=== PATIENT | male | born 1955 | race Caucasian/White ===

== ENCOUNTER 2022-06-22 12:41 | Inpatient (IN) | payer OTHER ==
[~2022-06-22] VITALS: Ht 177.8 cm; Wt 120.9 kg
[~2022-06-22 12:41] MED LIST: CLINDAMYCIN 900 MG/D5% WATER 50 ML IV ONE
[2022-06-22] MEDS ORDERED: RINGERS SOLUTION,LACTATED 1,000 ML IV ONE ×4 (12:51→16:15)
[2022-06-22 13:14] LABS: COVID AG,FIA SOURCE NASAL SWAB
[2022-06-22] MEDS ORDERED: ETHYL ALCOHOL 62% ANTISEPTIC NASAL SANITIZER 0.6 ML AMPUL NASAL ONE (13:15)
[2022-06-22] MEDS ORDERED: BUPIVACAINE LIPOSOME/PF 1.3%-13.3MG/ML SUSPENSION 20 ML VIAL INJ ONE (13:15)
[2022-06-22 13:27] LABS: GLUCOMETER DEV NAME(LOC) SDS.; GLUCOSE,POINT OF CARE 93 MG/DL (70-110)
[2022-06-22] MEDS ORDERED: FAMO20 PO (13:30)
[2022-06-22] MEDS ORDERED: QUET200T PO (13:30)
[2022-06-22] MEDS ORDERED: OXYC-490 PO (13:32)
[2022-06-22] MEDS ORDERED: SODIUM CHLORIDE 0.9% 20 ML ONE (13:33)
[2022-06-22] MEDS ORDERED: PREG50 PO (13:33)
[2022-06-22] MEDS ORDERED: VANCOMYCIN HCL 1 GM/VIAL ONE (13:33)
[2022-06-22] MEDS ORDERED: ESOM20CA31 PO (13:34)
[2022-06-22] MEDS ORDERED: METF-1211 PO (13:43)
[2022-06-22] MEDS ORDERED: DULO-113 PO (13:44)
[2022-06-22] MEDS ORDERED: VERA120T91 PO (13:45)
[2022-06-22] MEDS ORDERED: ATOR40TA28 PO (13:46)
[2022-06-22] MEDS ORDERED: HYDR-4527 PO (13:46)
[2022-06-22] MEDS ORDERED: BUPIVACAINE HCL/PF 0.5% 30 ML VIAL ONE (13:47)
[2022-06-22] MEDS ORDERED: TAMS-13 PO (13:47)
[2022-06-22] MEDS ORDERED: QUET100T PO (13:57)
[2022-06-22] MEDS ORDERED: INSU100V36 SQ (14:00)
[2022-06-22] MEDS ORDERED: INSU100I26 SQ (14:00)
[2022-06-22] MEDS ORDERED: PROPOFOL 1000 MG/ISO-OSM 100 ML ONE (15:03)
[2022-06-22] MEDS ORDERED: OxyCODONE HCL/ACETAMINOPHEN 5-325 MG TABLET PO PRN ×2 (15:45)
[2022-06-22] MEDS ORDERED: ZOLPIDEM TARTRATE 10 MG TABLET PO PRN (15:45)
[2022-06-22] MEDS ORDERED: MAG HYDROX/AL HYDROX/SIMETH 30 ML SUSP UDCUP PO PRN (15:45)
[2022-06-22] MEDS ORDERED: BENZOCAINE/MENTHOL LOZENGE PO PRN (15:45)
[2022-06-22] MEDS ORDERED: ONDANSETRON HCL 4 MG/2 ML VIAL IVP PRN ×2 (15:45→20:30)
[2022-06-22] MEDS ORDERED: HYDROmorphone HCL 2 MG/ML SYRINGE IVP PRN ×4 (15:45→20:45)
[2022-06-22] MEDS ORDERED: DiphenhydrAMINE HCL 50 MG/ML VIAL IVP PRN (15:45)
[2022-06-22] MEDS: DEXAMETHASONE SOD PHOS 4 MG/ML VIAL IVP SCH ×2 (16:00→23:32)
[2022-06-22] MEDS ORDERED: ACETAMINOPHEN 1000 MG/ISO-OSM 100 ML IV ONE (16:01)
[2022-06-22] MEDS ORDERED: PHENYLEPHRINE 200 MG/D5%-WATER 250 ML IV PRN (16:15)
[2022-06-22] MEDS ORDERED: NOREPINEPHRINE 8 MG/D5%-WATER 250 ML IV PRN (16:45)
[2022-06-22] MEDS ORDERED: FentaNYL CITRATE PF 100 MCG/2 ML VIAL IVP PRN (17:45)
[2022-06-22 18:10] VITALS: BP 122/77
[2022-06-22] MEDS: OXYGEN THERAPY IH SCH (20:00)
[2022-06-22 20:10] VITALS: BP 141/87
[2022-06-22] MEDS ORDERED: BISACODYL 10 MG RECTAL RECTAL SUPPOSITORY PR PRN (20:30)
[2022-06-22] MEDS ORDERED: MORPHINE SULFATE 2 MG/ML SYRINGE IVP PRN (20:30)
[2022-06-22] MEDS ORDERED: HYDROCODONE/ACETAMINOPHEN 5-325 MG TABLET PO PRN (20:30)
[2022-06-22] MEDS ORDERED: MAGNESIUM HYDROXIDE SUSPENSION 30 ML UDCUP PO PRN (20:30)
[2022-06-22] MEDS ORDERED: ZOLPIDEM TARTRATE 5 MG TABLET PO PRN (20:30)
[2022-06-22] MEDS ORDERED: ACETAMINOPHEN 325 MG TABLET PO PRN (20:30)
[2022-06-22] MEDS: DOCUSATE SODIUM 100 MG CAPSULE PO SCH (21:00)
[2022-06-22] MEDS: VERAPAMIL HCL 120 MG TABLET PO SCH (21:00)
[2022-06-22] MEDS ORDERED: INSULIN LISPRO 100 UNITS/ML SQ SCH (21:00)
[2022-06-22] MEDS: HydrOXYzine HCL 25 MG TABLET PO SCH (21:00)
[2022-06-22] MEDS: TAMSULOSIN HCL 0.4 MG CAPSULE PO SCH (21:00)
[2022-06-22] MEDS ORDERED: DOCUSATE SODIUM 100 MG CAPSULE PO SCH (21:00)
[2022-06-22] MEDS: PREGABALIN 50 MG CAPSULE PO SCH (21:00)
[2022-06-22] MEDS ORDERED: QUEtiapine FUMARATE 200 MG TABLET PO SCH (23:00)
[2022-06-22] MEDS: OxyCODONE HCL/ACETAMINOPHEN 5-325 MG TABLET PO PRN (23:31)
[2022-06-23] MEDS ORDERED: HYDROmorphone HCL 2 MG/ML SYRINGE IVP ONE (01:15)
[2022-06-23 03:07] LABS: GLUCOMETER DEV NAME(LOC) 6N.1; GLUCOSE,POINT OF CARE 139 MG/DL (70-110)
[2022-06-23] MEDS: DIAZEPAM 5 MG TABLET PO PRN ×2 (03:19→09:48)
[2022-06-23 04:02] VITALS: BP 173/125
[2022-06-23] MEDS ORDERED: LIDOCAINE 2% 5 ML JELLY TP ONE (04:22)
[2022-06-23] MEDS ORDERED: KETAMINE HCL 50 MG/ML 10 ML VIAL IVP ONE (04:22)
[2022-06-23] MEDS ORDERED: PHENYLEPHRINE HCL 10 MG/ML VIAL IVP ONE (04:22)
[2022-06-23] MEDS ORDERED: MIDAZOLAM HCL 2 MG/2 ML VIAL IVP ONE (04:22)
[2022-06-23] MEDS ORDERED: ROCURONIUM BROMIDE 10 MG/ML 5 ML VIAL IVP ONE (04:22)
[2022-06-23] MEDS ORDERED: 0.9% SODIUM CHLORIDE 10 ML VIAL IVP ONE (04:22)
[2022-06-23] MEDS ORDERED: ONDANSETRON HCL 4 MG/2 ML VIAL IVP ONE (04:22)
[2022-06-23] MEDS ORDERED: SUCCINYLCHOLINE CHLORIDE 20 MG/ML 10 ML VIAL IVP ONE (04:22)
[2022-06-23] MEDS ORDERED: GLYCOPYRROLATE 0.2 MG/ML VIAL IM ONE (04:22)
[2022-06-23] MEDS ORDERED: EPHEDrine SULFATE 50 MG/ML VIAL IM ONE (04:22)
[2022-06-23] MEDS ORDERED: FentaNYL CITRATE PF 100 MCG/2 ML VIAL IVP ONE (04:22)
[2022-06-23] MEDS: VERAPAMIL HCL 120 MG TABLET PO SCH ×2 (04:26→15:15)
[2022-06-23] MEDS: OxyCODONE HCL/ACETAMINOPHEN 5-325 MG TABLET PO PRN ×2 (04:59→12:08)
[2022-06-23] MEDS: NICOTINE 21 MG/24 HOUR PATCH TD SCH ×2 (05:00→08:05)
[2022-06-23 05:16] LABS: GLUCOMETER DEV NAME(LOC) 6N.1; GLUCOSE,POINT OF CARE 143 MG/DL (70-110)
[2022-06-23 06:27] VITALS: BP 169/101
[2022-06-23 06:28] VITALS: BP 185/108
[2022-06-23] MEDS ORDERED: QUEtiapine FUMARATE 100 MG TABLET PO SCH (06:30)
[2022-06-23] MEDS: HydrALAZINE HCL 25 MG TABLET PO SCH ×3 (06:43→15:21)
[2022-06-23 07:27] LABS: EOSINOPHILS % (AUTO) 1.5 % (1.0-6.0); HEMATOCRIT 43.5 % (41-53); HEMOGLOBIN 14.8 g/dL (13.5-17.5); LYMPHOCYTES # (AUTO) 2.4 K/uL (1.0-4.8); LYMPHOCYTES % (AUTO) 23.7 % (22.0-44.0); MEAN CORPUSCULAR HGB CONC 33.9 G/dL (31.0-37.0); MEAN CORPUSCULAR VOLUME 86 fL (80-100); NEUTROPHILS # (AUTO) 6.5 K/uL (1.8-7.7); NEUTROPHILS % (AUTO) 63.8 % (40.0-70.0); PLATELET COUNT (AUTO) 258 K/uL (150-450); RED BLOOD CELL COUNT(AUTO) 5.08 MIL/uL (4.50-5.90); RED CELL DISTRIBUTION WIDTH 13.2 % (11.5-14.5)
[2022-06-23 07:36] LABS: ANION GAP 12 mmol/L (8-16); CALCIUM, TOTAL 8.5 mg/dL (8.8-10.5); CARBON DIOXIDE 25 mmol/L (22-29); CHLORIDE 100 mmol/L (98-107); CREATININE 0.97 mg/dL (0.60-1.30); GLUCOSE,RANDOM 205 mg/dL (70-110); POTASSIUM 3.8 mmol/L (3.5-5.1); SODIUM SERUM 137 mmol/L (136-145); UREA NITROGEN, BLOOD 12 mg/dL (7-18)
[2022-06-23 07:37] LABS: GLOMERULAR FILTR. RATE CALC > 60 mL/min (>60)
[2022-06-23] MEDS: HYDROmorphone HCL 2 MG/ML SYRINGE IVP PRN ×2 (07:48→14:09)
[2022-06-23] MEDS: OXYGEN THERAPY IH SCH (07:59)
[2022-06-23] MEDS: DEXAMETHASONE SOD PHOS 4 MG/ML VIAL IVP SCH (08:00)
[2022-06-23] MEDS ORDERED: MetFORMIN HCL 500 MG TABLET PO SCH (08:00)
[2022-06-23] MEDS: PREGABALIN 50 MG CAPSULE PO SCH (08:11)
[2022-06-23] MEDS: TAMSULOSIN HCL 0.4 MG CAPSULE PO SCH (08:12)
[2022-06-23] MEDS: HydrOXYzine HCL 25 MG TABLET PO SCH (08:13)
[2022-06-23] MEDS: DOCUSATE SODIUM 100 MG CAPSULE PO SCH (08:15)
[2022-06-23] MEDS ORDERED: DULoxetine HCL 60 MG CAPSULE PO SCH (09:00)
[2022-06-23] MEDS ORDERED: PANTOPRAZOLE SODIUM 40 MG DR TABLET PO SCH (09:00)
[2022-06-23] MEDS ORDERED: INSULIN GLARGINE,HUM.REC.ANLOG 100 UNITS/ML SQ SCH (09:00)
[2022-06-23] MEDS ORDERED: ATORVASTATIN CALCIUM 40 MG TABLET PO SCH (09:00)
[2022-06-23] MEDS ORDERED: ESOMEPRAZOLE MAG TRIHYDRATE 20 MG CAPSULE PO SCH (09:00)
[2022-06-23 09:01] VITALS: BP 150/80
[2022-06-23] MEDS ORDERED: INSULIN LISPRO 100 UNITS/ML SQ PRN ×2 (11:45→12:00)
[2022-06-23] MEDS ORDERED: GLUCAGON,HUMAN RECOMBINANT 1 MG VIAL IM PRN (11:45)
[2022-06-23] MEDS ORDERED: DEXTROSE 50%-WATER 25 GM/50 ML SYRINGE IVP PRN (12:00)
[2022-06-23] MEDS ORDERED: INSULIN LISPRO 100 UNITS/ML SQ SCH (12:00)
[2022-06-23 15:26] VITALS: BP 128/80
[2022-06-23 20:17] LABS: GLUCOMETER DEV NAME(LOC) 6N.1; GLUCOSE,POINT OF CARE 294 MG/DL (70-110)
[2022-06-23] MEDS ORDERED: QUEtiapine FUMARATE 200 MG TABLET PO SCH (21:00)
== END 2022-06-23 15:25 | disposition home or self-care (01) | DRG 304 ==
LOC: SURGERY 12:41 → 6S 12:42 → UNDOADMIN 18:21
PROVIDERS: ADMIT Neurological Surgery; ATTEND Neurological Surgery
PROC: 0SB40ZZ Excision of Lumbosacral Disc, Open Approach (ICD-10-PCS; 2022-06-22)
PROC: 4A11X4G Monitoring of Peripheral Nervous Electrical Activity, Intraoperative, External Approach (ICD-10-PCS; 2022-06-22)
PROC: 0SG30A0 Fusion of Lumbosacral Joint with Interbody Fusion Device, Anterior Approach, Anterior Column, Open Approach (ICD-10-PCS; principal; 2022-06-22 15:15)
DX: M51.27 Other intervertebral disc displacement, lumbosacral region (principal); E11.9 Type 2 diabetes mellitus without complications; E78.5 Hyperlipidemia, unspecified; K21.9 Gastro-esophageal reflux disease without esophagitis; I10 Essential (primary) hypertension; E66.01 Morbid (severe) obesity due to excess calories; N40.0 Benign prostatic hyperplasia without lower urinary tract symptoms; Z20.822 Contact with and (suspected) exposure to COVID-19; Z79.84 Long term (current) use of oral hypoglycemic drugs; Z79.899 Other long term (current) drug therapy; Z88.0 Allergy status to penicillin; Z68.38 Body mass index [BMI] 38.0-38.9, adult; Z79.4 Long term (current) use of insulin
CPT/HCPCS: 71045; 72100; 80048; 82962; 85025; 87081; 97162; 97165; 97535; C9290; G0238; J0131; J0330; J1100; J1170; J1200; J1815; J2250; J2370; J2405; J2704; J3010; J3370; J3490; J7120; 36415-L1; 36415-TC; C1716; C9803; Z7610

== ENCOUNTER 2022-06-26 09:00 | Emergency (ER) | payer OTHER ==
[~2022-06-26] VITALS: Ht 180.3 cm; Wt 109.1 kg
[~2022-06-26 09:00] MED LIST changes: -CLINDAMYCIN 900 MG/D5% WATER 50 ML IV ONE; +DULO-113 PO; +ESOM20CA31 PO; +FAMO20 PO; +HYDR-4527 PO; +INSU100I26 SQ; +INSU100V36 SQ; +METF-1211 PO; +OXYC-490 PO; +PREG50 PO; +QUET100T PO; +QUET200T PO; +TAMS-13 PO; +VERA120T91 PO
[2022-06-26 10:09] VITALS: BP 129/75
== END 2022-06-26 10:10 | disposition home or self-care (01) ==
LOC: EMS 09:02
DX: Z48.00 Encounter for change or removal of nonsurgical wound dressing (principal); Z88.0 Allergy status to penicillin; Z91.030 Bee allergy status
CPT/HCPCS: 99281; Z7502

== ENCOUNTER 2022-07-27 08:31 | Emergency (ER) | payer OTHER ==
[~2022-07-27] VITALS: Ht 177.8 cm; Wt 97.7 kg
[~2022-07-27 08:31] MED LIST changes: +ATOR-2 PO; +BISA10SU11 PR; +NICO-703 TP; +PARO30TA60 PO; +PERCT PO; +UMEC62.5 IH; +VERA120T21 PO; -VERA120T91 PO
[2022-07-27] MEDS ORDERED: OXYC-30 PO (08:37)
[2022-07-27] MEDS ORDERED: OxyCODONE HCL 5 MG IR TABLET PO ONE (10:15)
[2022-07-27 10:43] VITALS: BP 145/98
== END 2022-07-27 10:46 | disposition home or self-care (01) ==
LOC: EMS 08:34
DX: S70.01XA Contusion of right hip, initial encounter (principal); Z88.0 Allergy status to penicillin; Z88.8 Allergy status to other drugs, medicaments and biological substances; Z91.030 Bee allergy status; W18.30XA Fall on same level, unspecified, initial encounter; Y93.89 Activity, other specified; Y92.89 Other specified places as the place of occurrence of the external cause; Y99.8 Other external cause status
CPT/HCPCS: 73502; 82962; 99283

== ENCOUNTER 2022-09-02 12:20 | Emergency (ER) | payer OTHER ==
[~2022-09-02] VITALS: Ht 177.8 cm; Wt 104.5 kg
[~2022-09-02 12:20] MED LIST changes: -ATOR-2 PO; -BISA10SU11 PR; +OXYC-30 PO; -OXYC-490 PO; -PARO30TA60 PO; -PERCT PO
[2022-09-02] MEDS ORDERED: HYDROmorphone HCL 2 MG/ML SYRINGE IM ONE (13:15)
[2022-09-02] MEDS ORDERED: ONDANSETRON HCL 4 MG/2 ML VIAL IM ONE (13:15)
[2022-09-02 13:34] LABS: BASOPHILS % (AUTO) 1.3 % (0.0-2.0); EOSINOPHILS % (AUTO) 6.1 % (1.0-6.0); HEMATOCRIT 43.4 % (41-53); HEMOGLOBIN 14.5 g/dL (13.5-17.5); LYMPHOCYTES # (AUTO) 2.2 K/uL (1.0-4.8); LYMPHOCYTES % (AUTO) 22.5 % (22.0-44.0); MEAN CORPUSCULAR HEMOGLOBIN 29.2 pg (26.0-34.0); MEAN CORPUSCULAR HGB CONC 33.4 G/dL (31.0-37.0); MEAN CORPUSCULAR VOLUME 87 fL (80-100); MONOCYTES # (AUTO) 0.9 K/uL (0.1-1.0); MONOCYTES % (AUTO) 8.7 % (2.0-9.0); NEUTROPHILS # (AUTO) 6.1 K/uL (1.8-7.7); NEUTROPHILS % (AUTO) 61.4 % (40.0-70.0); PLATELET COUNT (AUTO) 311 K/uL (150-450); RED BLOOD CELL COUNT(AUTO) 4.97 MIL/uL (4.50-5.90); RED CELL DISTRIBUTION WIDTH 13.8 % (11.5-14.5)
[2022-09-02 13:44] LABS: ANION GAP 8 mmol/L (8-16); CALCIUM, TOTAL 8.7 mg/dL (8.8-10.5); CARBON DIOXIDE 28 mmol/L (22-29); CHLORIDE 103 mmol/L (98-107); CREATININE 0.76 mg/dL (0.60-1.30); GLOMERULAR FILTR. RATE CALC > 60 mL/min (>60); GLUCOSE,RANDOM 102 mg/dL (70-110); POTASSIUM 3.8 mmol/L (3.5-5.1); SODIUM SERUM 139 mmol/L (136-145); UREA NITROGEN, BLOOD 14 mg/dL (7-18)
[2022-09-02 13:50] LABS: ALANINE AMINOTRANSFERASE 18 U/L (12-78); ALBUMIN 3.3 g/dL (3.4-5.0); ALKALINE PHOSPHATASE 122 U/L (46-116); ASPARTATE AMINOTRANSFERASE 25 U/L (15-37); BILIRUBIN,TOTAL 0.3 mg/dL (0.1-1.0); LIPASE 49 U/L (73-393); TOTAL PROTEIN, SERUM 6.3 g/dL (6.4-8.2)
[2022-09-02 14:30] VITALS: BP 157/92
[2022-09-02] MEDS ORDERED: OxyCODONE HCL/ACETAMINOPHEN 5-325 MG TABLET PO ONE (15:00)
== END 2022-09-02 17:22 | disposition home or self-care (01) ==
LOC: EMS 12:20
DX: S06.0X0A Concussion without loss of consciousness, initial encounter (principal); S13.4XXA Sprain of ligaments of cervical spine, initial encounter; S30.0XXA Contusion of lower back and pelvis, initial encounter; S90.01XA Contusion of right ankle, initial encounter; Z88.0 Allergy status to penicillin; Z91.030 Bee allergy status; Z88.8 Allergy status to other drugs, medicaments and biological substances; W19.XXXA Unspecified fall, initial encounter; Y93.89 Activity, other specified; Y92.89 Other specified places as the place of occurrence of the external cause; Y99.8 Other external cause status
CPT/HCPCS: 99291; 70450; 71045; 80053; 82962; 83605; 83690; 84484; 85025; 72070; 72100; 72170; 73590; 73610; 72125; 96372; J1170; J2405

== ENCOUNTER 2022-09-07 06:20 | Emergency (ER) | payer OTHER ==
[~2022-09-07] VITALS: Ht 177.8 cm; Wt 104.5 kg
[~2022-09-07 06:20] MED LIST changes: -NICO-703 TP
[2022-09-07] MEDS ORDERED: ONDANSETRON HCL 4 MG TABLET PO ONE (07:30)
[2022-09-07] MEDS ORDERED: OxyCODONE HCL/ACETAMINOPHEN 5-325 MG TABLET PO ONE (07:30)
[2022-09-07 07:47] LABS: BASOPHILS % (AUTO) 2.1 % (0.0-2.0); EOSINOPHILS % (AUTO) 8.4 % (1.0-6.0); HEMATOCRIT 40.1 % (41-53); HEMOGLOBIN 13.7 g/dL (13.5-17.5); LYMPHOCYTES # (AUTO) 2.5 K/uL (1.0-4.8); MEAN CORPUSCULAR HEMOGLOBIN 29.5 pg (26.0-34.0); MEAN CORPUSCULAR HGB CONC 34.2 G/dL (31.0-37.0); MEAN CORPUSCULAR VOLUME 86 fL (80-100); MONOCYTES # (AUTO) 0.7 K/uL (0.1-1.0); MONOCYTES % (AUTO) 9.1 % (2.0-9.0); NEUTROPHILS # (AUTO) 3.6 K/uL (1.8-7.7); NEUTROPHILS % (AUTO) 47.4 % (40.0-70.0); PLATELET COUNT (AUTO) 296 K/uL (150-450); RED BLOOD CELL COUNT(AUTO) 4.64 MIL/uL (4.50-5.90); RED CELL DISTRIBUTION WIDTH 13.4 % (11.5-14.5)
[2022-09-07 07:58] LABS: ANION GAP 7 mmol/L (8-16); CALCIUM, TOTAL 8.6 mg/dL (8.8-10.5); CARBON DIOXIDE 26 mmol/L (22-29); CHLORIDE 104 mmol/L (98-107); CREATININE 0.69 mg/dL (0.60-1.30); GLOMERULAR FILTR. RATE CALC > 60 mL/min (>60); GLUCOSE,RANDOM 182 mg/dL (70-110); POTASSIUM 3.8 mmol/L (3.5-5.1); SODIUM SERUM 137 mmol/L (136-145); UREA NITROGEN, BLOOD 14 mg/dL (7-18)
[2022-09-07 08:04] LABS: ALANINE AMINOTRANSFERASE 18 U/L (12-78); ALBUMIN 3.3 g/dL (3.4-5.0); ALKALINE PHOSPHATASE 119 U/L (46-116); ASPARTATE AMINOTRANSFERASE 18 U/L (15-37); BILIRUBIN,TOTAL 0.3 mg/dL (0.1-1.0); LIPASE 56 U/L (73-393); TOTAL PROTEIN, SERUM 6.3 g/dL (6.4-8.2)
[2022-09-07 08:30] VITALS: BP 144/83
[2022-09-07] MEDS ORDERED: ONDA-104 PO (08:36)
== END 2022-09-07 09:00 | disposition home or self-care (01) ==
LOC: EMS 06:20
DX: R11.2 Nausea with vomiting, unspecified (principal); R19.7 Diarrhea, unspecified; E11.9 Type 2 diabetes mellitus without complications; I10 Essential (primary) hypertension; Z90.49 Acquired absence of other specified parts of digestive tract; Z98.890 Other specified postprocedural states
CPT/HCPCS: 99283; 80053; 82962; 83690; 85025; 36415; G0480; Q0162

== ENCOUNTER 2022-10-17 19:34 | Emergency (ER) | payer OTHER ==
[~2022-10-17] VITALS: Ht 177.8 cm; Wt 113.6 kg
[~2022-10-17 19:34] MED LIST changes: +ONDA-104 PO
[2022-10-17 19:43] VITALS: BP 134/82
[2022-10-17] MEDS ORDERED: SODIUM CHLORIDE 0.9% 1,000 ML IV ONE (20:15)
[2022-10-17] MEDS ORDERED: HydrOXYzine HCL 25 MG TABLET PO ONE (20:15)
[2022-10-17] MEDS ORDERED: ONDANSETRON HCL 4 MG/2 ML VIAL IVP ONE (20:15)
[2022-10-17] MEDS ORDERED: KETOROLAC TROMETHAMINE 30 MG/ML VIAL IVP ONE (20:15)
[2022-10-17] MEDS ORDERED: ONDANSETRON HCL 4 MG TABLET PO ONE (21:30)
[2022-10-17] MEDS ORDERED: KETOROLAC TROMETHAMINE 30 MG/ML VIAL IM ONE (21:30)
== END 2022-10-17 22:32 | disposition left against medical advice (07) ==
LOC: EMS 19:48
DX: R10.31 Right lower quadrant pain (principal); F41.9 Anxiety disorder, unspecified; E11.9 Type 2 diabetes mellitus without complications; I10 Essential (primary) hypertension; Z90.49 Acquired absence of other specified parts of digestive tract; Z88.0 Allergy status to penicillin; Z88.8 Allergy status to other drugs, medicaments and biological substances
CPT/HCPCS: 99285; 74176; 96374; 96361; 96375; 82962; 96372; J1885; Q0162; J7030; J2405

== ENCOUNTER 2023-01-23 09:43 | Emergency (ER) | payer OTHER ==
[~2023-01-23] VITALS: Ht 177.8 cm; Wt 110.9 kg
[2023-01-23 09:52] VITALS: TEMP 98.3
[2023-01-23 10:17] LABS: GLUCOMETER DEV NAME(LOC) ERT.5
[2023-01-23] MEDS ORDERED: KETOROLAC TROMETHAMINE 60 MG/2 ML VIAL IM ONE (11:15)
[2023-01-23] MEDS ORDERED: METHOCARBAMOL 500 MG TABLET PO ONE (11:15)
[2023-01-23] MEDS ORDERED: BUSP10TA23 PO (11:18)
[2023-01-23] MEDS ORDERED: ALBU18HF12 IH (11:18)
[2023-01-23] MEDS ORDERED: LISI40TA9 PO (11:18)
[2023-01-23] MEDS ORDERED: HYDR-4584 PO (11:19)
[2023-01-23] MEDS ORDERED: GABA800T9 PO (11:19)
[2023-01-23] MEDS ORDERED: MELO-108 PO (11:19)
[2023-01-23] MEDS ORDERED: INSU100I15 SQ (11:19)
[2023-01-23] MEDS ORDERED: RANO500T27 PO (11:19)
[2023-01-23] MEDS ORDERED: METH-812 PO (12:00)
[2023-01-23] MEDS ORDERED: IBUP-1492 PO (12:05)
[2023-01-23 12:43] VITALS: BP 155/78; PULSE 78; RESP 18
== END 2023-01-23 13:03 | disposition home or self-care (01) ==
LOC: EMS 09:49
DX: S06.0X0A Concussion without loss of consciousness, initial encounter (principal); M54.50 Low back pain, unspecified; E11.9 Type 2 diabetes mellitus without complications; I10 Essential (primary) hypertension; Z90.49 Acquired absence of other specified parts of digestive tract; Z98.890 Other specified postprocedural states; Z88.0 Allergy status to penicillin; Z88.8 Allergy status to other drugs, medicaments and biological substances; Z91.030 Bee allergy status; V09.9XXA Pedestrian injured in unspecified transport accident, initial encounter; Y93.89 Activity, other specified; Y92.89 Other specified places as the place of occurrence of the external cause; Y99.8 Other external cause status
CPT/HCPCS: 99285; 70450; 82962; 72110; 96372; J1885

== ENCOUNTER 2023-08-12 16:45 | Emergency (ER) | payer OTHER ==
[~2023-08-12] VITALS: Ht 177.8 cm; Wt 115.9 kg
[~2023-08-12 16:45] MED LIST changes: +ALBU18HF12 IH; +BUSP10TA23 PO; -DULO-113 PO; +GABA800T9 PO; -HYDR-4527 PO; +HYDR-4584 PO; +IBUP-1492 PO; +INSU100I15 SQ; -INSU100V36 SQ; +LISI40TA9 PO; +MELO-108 PO; +METH-812 PO; -PREG50 PO; +RANO500T27 PO; -TAMS-13 PO; +TAMS0.4C94 PO
[2023-08-12 16:59] VITALS: BP 126/70; PULSE 79; RESP 16; TEMP 98.3
[2023-08-12 17:32] LABS: BASOPHILS % (AUTO) 1.3 % (0.0-2.0); EOSINOPHILS % (AUTO) 2.9 % (1.0-6.0); HEMOGLOBIN 14.7 g/dL (13.5-17.5); LYMPHOCYTES # (AUTO) 2.3 K/uL (1.0-4.8); LYMPHOCYTES % (AUTO) 27.9 % (22.0-44.0); MEAN CORPUSCULAR HEMOGLOBIN 29.6 pg (26.0-34.0); MEAN CORPUSCULAR HGB CONC 34.3 G/dL (31.0-37.0); MEAN CORPUSCULAR VOLUME 86 fL (80-100); MONOCYTES # (AUTO) 0.6 K/uL (0.1-1.0); MONOCYTES % (AUTO) 7.7 % (2.0-9.0); NEUTROPHILS % (AUTO) 60.2 % (40.0-70.0); PLATELET COUNT (AUTO) 252 K/uL (150-450); RED BLOOD CELL COUNT(AUTO) 4.99 MIL/uL (4.50-5.90); RED CELL DISTRIBUTION WIDTH 14.6 % (11.5-14.5); WHITE BLOOD COUNT (AUTO) 8.2 K/uL (4.5-11.0)
[2023-08-12 17:43] LABS: ANION GAP 13 mmol/L (8-16); CALCIUM, TOTAL 8.7 mg/dL (8.8-10.5); CARBON DIOXIDE 22 mmol/L (22-29); CHLORIDE 98 mmol/L (98-107); CREATININE 0.94 mg/dL (0.60-1.30); GLOMERULAR FILTR. RATE CALC > 60 mL/min (>60); GLUCOSE,RANDOM 292 mg/dL (70-110); POTASSIUM 3.8 mmol/L (3.5-5.1); SODIUM SERUM 132 mmol/L (136-145); UREA NITROGEN, BLOOD 11 mg/dL (7-18)
[2023-08-12 17:48] LABS: B-TYPE NATRIURETIC PEPTIDE 15 pg/mL (0-100)
[2023-08-12 17:49] LABS: ALANINE AMINOTRANSFERASE 27 U/L (12-78); ALBUMIN 3.7 g/dL (3.4-5.0); ALKALINE PHOSPHATASE 103 U/L (46-116); ASPARTATE AMINOTRANSFERASE 19 U/L (15-37); BILIRUBIN,TOTAL 0.6 mg/dL (0.1-1.0); CREATINE KINASE, TOTAL ONLY 44 U/L (39-308); TOTAL PROTEIN, SERUM 6.4 g/dL (6.4-8.2)
[2023-08-12 17:50] LABS: TROPONIN I-HIGH SENSITIVITY 4 ng/L (<76)
== END 2023-08-12 18:52 | disposition left against medical advice (07) ==
LOC: EMS 16:49
DX: R07.89 Other chest pain (principal); G89.29 Other chronic pain; M54.50 Low back pain, unspecified; E11.65 Type 2 diabetes mellitus with hyperglycemia; I10 Essential (primary) hypertension; I25.2 Old myocardial infarction; Z90.49 Acquired absence of other specified parts of digestive tract; Z88.0 Allergy status to penicillin
CPT/HCPCS: 71045; 80053; 82550; 83880; 84484; 85025; 93005; 99285; 36415-L1; 36415-TC

== ENCOUNTER 2023-09-29 08:23 | Emergency (ER) | payer OTHER ==
[~2023-09-29] VITALS: Ht 177.8 cm; Wt 109.1 kg
[2023-09-29] MEDS ORDERED: INSNOV SQ (08:36)
[2023-09-29] MEDS: ONDANSETRON HCL 4 MG/2 ML VIAL IVP ONE (08:54)
[2023-09-29] MEDS: SODIUM CHLORIDE 0.9% 1,000 ML IV ONE (08:54)
[2023-09-29] MEDS: MORPHINE SULFATE 2 MG/ML SYRINGE IVP ONE (08:54)
[2023-09-29 08:59] LABS: EOSINOPHILS % (AUTO) 1.3 % (1.0-6.0); HEMATOCRIT 45.2 % (41-53); HEMOGLOBIN 15.5 g/dL (13.5-17.5); LYMPHOCYTES # (AUTO) 2.2 K/uL (1.0-4.8); LYMPHOCYTES % (AUTO) 23.7 % (22.0-44.0); MEAN CORPUSCULAR HEMOGLOBIN 30.6 pg (26.0-34.0); MEAN CORPUSCULAR HGB CONC 34.3 G/dL (31.0-37.0); MEAN CORPUSCULAR VOLUME 89 fL (80-100); MONOCYTES # (AUTO) 0.7 K/uL (0.1-1.0); MONOCYTES % (AUTO) 7.3 % (2.0-9.0); NEUTROPHILS # (AUTO) 6.2 K/uL (1.8-7.7); NEUTROPHILS % (AUTO) 66.7 % (40.0-70.0); PLATELET COUNT (AUTO) 259 K/uL (150-450); RED BLOOD CELL COUNT(AUTO) 5.07 MIL/uL (4.50-5.90); RED CELL DISTRIBUTION WIDTH 13.8 % (11.5-14.5); WHITE BLOOD COUNT (AUTO) 9.3 K/uL (4.5-11.0)
[2023-09-29 09:15] LABS: ALANINE AMINOTRANSFERASE 34 U/L (12-78); ALBUMIN 3.9 g/dL (3.4-5.0); ALKALINE PHOSPHATASE 109 U/L (46-116); ANION GAP 14 mmol/L (8-16); ASPARTATE AMINOTRANSFERASE 27 U/L (15-37); BILIRUBIN,TOTAL 0.6 mg/dL (0.1-1.0); CALCIUM, TOTAL 9.1 mg/dL (8.8-10.5); CARBON DIOXIDE 23 mmol/L (22-29); CHLORIDE 100 mmol/L (98-107); CREATININE 0.99 mg/dL (0.60-1.30); GLOMERULAR FILTR. RATE CALC > 60 mL/min (>60); GLUCOSE,RANDOM 319 mg/dL (70-110); LIPASE 13 U/L (16-77); POTASSIUM 4.1 mmol/L (3.5-5.1); SODIUM SERUM 137 mmol/L (136-145); TOTAL PROTEIN, SERUM 7.4 g/dL (6.4-8.2); UREA NITROGEN, BLOOD 16 mg/dL (7-18)
[2023-09-29 09:19] LABS: TROPONIN I-HIGH SENSITIVITY 4 ng/L (<76)
[2023-09-29] MEDS ORDERED: ONDA-104 PO (10:22)
[2023-09-29] MEDS: METOCLOPRAMIDE HCL 5 MG/ML 2 ML VIAL IVP ONE (10:36)
[2023-09-29] MEDS: MORPHINE SULFATE 4 MG/ML SYRINGE IVP ONE (10:37)
[2023-09-29 10:45] VITALS: BP 154/114; PULSE 97; RESP 18; TEMP 98.1
== END 2023-09-29 10:52 | disposition home or self-care (01) ==
LOC: EMS 08:28
DX: R10.13 Epigastric pain (principal); F41.9 Anxiety disorder, unspecified; F32.A Depression, unspecified; E11.9 Type 2 diabetes mellitus without complications; I10 Essential (primary) hypertension; Z90.49 Acquired absence of other specified parts of digestive tract; Z98.890 Other specified postprocedural states; Z91.040 Latex allergy status; Z88.0 Allergy status to penicillin; Z88.8 Allergy status to other drugs, medicaments and biological substances
CPT/HCPCS: 99285; 74176; 96374; 71045; 96375; 96361; 80053; 82962; 83690; 84484; 85025; 36415; 93005; 96376; J2765; J2270 ×2; J2405; J7030